=== PATIENT | female | born 1955 | race Caucasian/White ===

== ENCOUNTER → 2019-01-09 | Outpatient (CLI) | payer MEDICARE ==
--- NOTE | 2019-01-09 12:44 | PCVCIMAG ---
APPROVED REPORT Study performed: 01/09/2019 11:28:30 EXAM: Comprehensive 2D, Doppler, and color-flow Echocardiogram Patient Location: Echo lab Room #: 2Status: routine BSA: 1.63 HR: 72 bpmBP: 130/70 mmHg Rhythm: NSR Other Information Study Quality: Good Indications Murmur 2D Dimensions IVSd: 7.37 (7-11mm)LVOT Diam: 17.51 (18-24mm) LVDd: 44.34 mm PWd: 6.90 (7-11mm) LVDs: 25.00 (25-40mm) Left Atrium: 34.83 (27-40mm) Aortic Root: 21.98 mm LV Single Plane 4CH: 64.15 % LV Single Plane 2CH: 68.61 % Biplane EF: 68.2 % Volumes Left Atrial Volume (Systole) Single Plane 4CH: 58.87 mLSingle Plane 2CH: 69.73 mL Biplane LA Volume: 65.00 mLLA ESV Index: 40.00 mL/m2 Aortic Valve AoV Peak Luis.: 1.40 m/s AO Peak Gr.: 7.82 mmHgLVOT Max P.51 mmHg LVOT Max V: 0.79 m/s JANAK Vmax: 1.36 cm2 Mitral Valve E/A Ratio: 1.4 MV Decel. Time: 174.61 ms MV E Max Luis.: 0.94 m/s MV A Luis.: 0.68 m/s MV Max Luis.: 5.40 m/s MV Mean Luis.: 4.21 m/s IVRT: 55.36 ms TDI E/Lateral E': 9.40E/Medial E': 9.40 Medial E' Luis.: 0.10 m/s Lateral E' Luis.: 0.10 m/s Pulmonary Valve PV Peak Luis.: 0.88 m/sPV Peak Gr.: 3.10 mmHg Pulmonary Vein P Vein S: 0.50 m/sP Vein A: 0.30 m/s P Vein D: 0.81 m/sP Vein A Dur.: 96.9 msec P Vein S/D Ratio: 0.62 Tricuspid Valve TR Peak Luis.: 2.45 m/s TR Peak Gr.: 24.08 mmHg TV Vmax: 0.63 m/sPA Pressure: 31.00 mmHg Left Ventricle The left ventricle is normal size. There is normal LV segmental wall motion. There is normal left ventricular wall thickness. Left ventricular systolic function is normal. The left ventricular ejection fraction is within the normal range. LVEF is 65-70%. The left ventricular diastolic function is normal. Right Ventricle The right ventricle is normal size. The right ventricular systolic function is normal. Atria Left atrium is mildly dilated. The right atrium size is normal. Aortic Valve Aortic valve is trileaflet. The aortic valve is normal in structure and function. No aortic regurgitation is present. There is no aortic valvular stenosis. Mitral Valve The posterior mitral valve leaflet is redundant with moderate prolapse. Mitral regurgitation jet is eccentrically directed. Moderate mitral regurgitation. No evidence of mitral valve stenosis. Tricuspid Valve The tricuspid valve is normal in structure. Trace to mild tricuspid regurgitation with a PA pressure of 31 mmHg. Mild pulmonary hypertension. Pulmonic Valve The pulmonary valve is normal in structure. There is no pulmonic valvular regurgitation. Great Vessels The aortic root is normal in size. The ascending aorta is normal in size. Aortic arch is normal in caliber. IVC is normal in size and collapses >50% with inspiration. Pericardium There is no pericardial effusion. There is no pleural effusion. <Conclusion> The left ventricle is normal size. There is normal left ventricular wall thickness. Left ventricular systolic function is normal. The right ventricle is normal size. Left atrium is mildly dilated. The right atrium size is normal. The aortic valve is normal in structure and function. The posterior mitral valve leaflet is redundant with moderate prolapse. Mitral regurgitation jet is eccentrically directed. Moderate mitral regurgitation. Trace to mild tricuspid regurgitation with a PA pressure of 31 mmHg.
== END | disposition home or self-care (01) ==
LOC: PCVCIMAG 11:28
PROVIDERS: ATTEND Internal Medicine Cardiovascular Disease
DX: I08.1 Rheumatic disorders of both mitral and tricuspid valves (principal); R60.9 Edema, unspecified; I10 Essential (primary) hypertension
CPT/HCPCS: 93005; 93306; G0463

== ENCOUNTER → 2019-02-06 | Outpatient (CLI) | payer MEDICARE ==
--- NOTE | 2019-02-06 16:02 | PCVCIMAG ---
APPROVED REPORT Study performed: 02/06/2019 14:44:47 Exam: Stress Echocardiogram Indication: mitral valve prolapse Patient Location: Echo lab Stress Nurse: Tania Sotomayor RN Status: routine Ht: 5 ft 6 in HR: 78 bpm BP: 114/80 mmHg Rhythm: NSR Medical History Medical History: Mitral valve prolapse, murmur Procedure The patient underwent an Exercise Stress Test using the Trent Protocol. Blood pressure, heart rate, and EKG were monitored. An Echocardiogram was performed by process environmental technician in four stages in quad fashion. At peak stress, four selected images were obtained and placed side by side with resting images for comparison. Stress Test Details Stress Test: Exercise stress testing was performed using a Trent protocol. HR Resting HR: 78 bpmMax Heart Rate (APMHR): 154 bpm Max HR Achieved: 173 bpmTarget HR (85% APMHR): 130 bpm % of APMHR: 112 Recovery HR: 96 bpm HR response to stress: Normal HR response to stress BP Resting BP: 114/80 mmHg Max BP: 178/78 mmHg Recovery BP: 96/ mmHg BP response to stress: Normal blood pressure response to stress. ECG Resting ECG: Sinus Rhythm Stress ECG: Sinus Rhythm ST Change: Non-ischemic Recovery ECG: Sinus Rhythm Clinical Reason for Termination: Maximal effort Exercise duration: 13 min 05 sec Highest Stage Achieved: Stage 5: 5.0 mph at 18% grade. Exercise capacity: 17.20 METs Overall Exercise Capacity for Age: Good Pre-Stress Echo The resting Echocardiogram showed normal left ventricular contractility with an estimated Ejection Fraction of about 55-60%. The resting echocardiogram demonstrated normal wall motion in all wall segments. Normal wall motion in all segments on baseline images. Post-Stress Echo The stress Echocardiogram showed normal left ventricular contractility with an estimated Ejection Fraction of about 60-65%. Compared to rest, there were no stress-induced wall motion abnormalities. Normal augmentation of wall motion in all segments on post stress images. Clinical No clinical or ECG evidence for ischemia. Conclusion Clinical Response: Non-ischemic Exercise Capacity: Superior Stress ECG Response: Non-ischemic Stress Echo Images: Non-ischemic The left ventricle is normal in size and wall thickness in both the rest and stress images. Mitral Valve prolapse. Moderate eccentric mitral regurgitation. Trace aortic insufficiency. Other Information Study Quality: Good <Conclusion> The left ventricle is normal in size and wall thickness in both the rest and stress images. Mitral Valve prolapse. Moderate eccentric mitral regurgitation. Trace aortic insufficiency.
== END | disposition home or self-care (01) ==
LOC: PCVCIMAG 14:20
PROVIDERS: ATTEND Internal Medicine Cardiovascular Disease
DX: I34.0 Nonrheumatic mitral (valve) insufficiency (principal); R60.9 Edema, unspecified; R01.1 Cardiac murmur, unspecified; Z79.899 Other long term (current) drug therapy
CPT/HCPCS: 93325; 93351; G0463